=== PATIENT | female | born 1985 | race Caucasian/White ===

== ENCOUNTER → 2024-04-20 15:28 | Outpatient (BNVA) | payer OTHER, MEDICAID, SELFPAY | PROVIDERS: PCP Nurse Practitioner Family; Visit Provider Surgery | DX: R59.1 Generalized enlarged lymph nodes (principal) | CPT/HCPCS: 36415; 80048; 80076; 85025; 85651; 86140; 86160; 86162; 86235; 86255; 86376; 86664; 86665; 86695; 86696 ==